=== PATIENT | female | born 1950 | race Caucasian/White ===

== ENCOUNTER 2017-06-09 00:24 | Emergency (ER) | payer OTHER, BC ==
[~2017-06-09 00:24] MED LIST: BUSPIRONE HCL10 MG PO; CEL500 PO; GABAPENTIN; MULTI VITAMINS1 TA1 PO; NEU300 PO; NEXIUM40 MG PO; PAROXETINE HCL20 M1 PO; PAXIL; PEPCID20 MG PO; PRAVASTATIN SOD10 M1 PO; PROGRAF1 MG PO; SENNA8.6 M2 PO; VITAMIN D35000 IU PO; WELSR PO
[2017-06-09 02:35] LABS: microscopic required? NO
[2017-06-09 02:44] LABS: PLATELET COUNT 316 x10^3mcL (130-400)
[2017-06-09 02:46] LABS: CALCIUM 8.3 mg/dL (8.5-10.1); CARBON DIOXIDE 23.8 mmol/L (21-32); CREATININE SERUM 1.2 mg/dL (0.6-1.0); POTASSIUM SERUM 4.6 mmol/L (3.5-5.1)
[2017-06-09 02:50] LABS: UA SPECIFIC GRAVITY 1.025 (1.005-1.035); urine erythrocyte NEGATIVE (NEGATIVE)
[2017-06-09 02:50] LABS: RED CELL DISTRIBUTION WIDTH 17.7 % (11.5-14.5)
[2017-06-09 04:28] VITALS: BP 124/83
== END 2017-06-09 04:28 | disposition home or self-care (01) ==
LOC: ED 00:24
PROVIDERS: Emergency Medicine Emergency Medical Services
DX: R10.9 Unspecified abdominal pain (principal); I11.0 Hypertensive heart disease with heart failure; I50.9 Heart failure, unspecified; E11.9 Type 2 diabetes mellitus without complications; Z94.1 Heart transplant status; Z79.899 Other long term (current) drug therapy

== ENCOUNTER 2019-04-13 16:16 | Emergency (ER) | payer OTHER, BC ==
[~2019-04-13] VITALS: Ht 157.5 cm; Wt 58.5 kg
[2019-04-13 16:20] VITALS: Ht 157.5 cm; Wt 58.5 kg
[2019-04-13 16:55] LABS: BASOPHIL % 0.7 % (0-2); PLATELET COUNT 263 x10^3mcL (130-400)
[2019-04-13 17:04] LABS: CALCIUM 9.2 mg/dL (8.5-10.1); CARBON DIOXIDE 24.1 mmol/L (21-32); CREATININE SERUM 1.4 mg/dL (0.6-1.0); POTASSIUM SERUM 4.4 mmol/L (3.5-5.1); RED CELL DISTRIBUTION WIDTH 16.6 % (11.5-14.5)
[2019-04-13 17:09] LABS: BILIRUBIN TOTAL 0.2 mg/dL (0.20-1.00); TOTAL PROTEIN, SERUM 6.9 g/dL (6.4-8.2)
[2019-04-13 17:17] LABS: ALBUMIN 3.2 g/dL (3.4-5.0)
[2019-04-13 22:01] VITALS: BP 139/76
== END 2019-04-13 22:01 | disposition short-term general hospital (02) ==
LOC: ED 16:16
PROVIDERS: Emergency Medicine
DX: J18.9 Pneumonia, unspecified organism (principal); R07.89 Other chest pain; I11.0 Hypertensive heart disease with heart failure; I50.9 Heart failure, unspecified; E11.9 Type 2 diabetes mellitus without complications; Z94.1 Heart transplant status
CPT/HCPCS: 83880; J0696; J3490; J7030; J7050; J7060; Q0092

== ENCOUNTER 2020-01-28 19:29 | Emergency (ER) | payer OTHER, BC, SELFPAY ==
[~2020-01-28] VITALS: Ht 157.5 cm; Wt 52.2 kg
[2020-01-28 19:32] VITALS: Ht 157.5 cm; Wt 52.2 kg
[2020-01-28 21:45] VITALS: BP 149/90
== END 2020-01-28 21:46 | disposition home or self-care (01) ==
LOC: ED 19:29
DX: Z20.828 Contact with and (suspected) exposure to other viral communicable diseases (principal); I50.9 Heart failure, unspecified; I10 Essential (primary) hypertension; E11.9 Type 2 diabetes mellitus without complications; Z94.89 Other transplanted organ and tissue status
CPT/HCPCS: Q0092; U0003-CS